=== PATIENT | female | born 1960 | race Caucasian/White ===

== ENCOUNTER 2023-11-09 10:46 | Inpatient (IN) ==
[2023-11-09] MEDS ORDERED: Al Hydrox/Mg Hydrox/Simet LIQ 30 ML UDC PO PRN (11:13)
[2023-11-09] MEDS: Valproic Acid LIQ 250 MG/5 ML UDC PO SCH (21:12)
[2023-11-10 08:39] LABS: HDL Cholesterol 39.9 mg/dL
[2023-11-10] MEDS: Valproic Acid LIQ 250 MG/5 ML UDC PO SCH (08:57)
[2023-11-10] MEDS: Vitamin THERAPEUTIC TAB PO SCH (08:58)
[2023-11-10] MEDS: OLANZapine 10 mg TAB*ODT PO SCH (20:39)
== END 2023-11-13 09:25 | DRG 885 ==
LOC: BSU 13:10
PROVIDERS: ADMIT Psychiatry & Neurology Psychiatry; ATTEND Psychiatry & Neurology Psychiatry